=== PATIENT | male | born 1985 | race Two or more races ===

== ENCOUNTER 2016-12-08 07:07 | Day surgery (SDC) | payer BC ==
[~2016-12-08] VITALS: Ht 165.1 cm; Wt 82.0 kg
[2016-12-08] VITALS (8 sets, daily range): BP systolic 92–121; BP diastolic 50–64
[2016-12-08] MEDS ORDERED: NORCO 5/3251 TABLET PO (11:35)
== END 2016-12-08 18:32 | disposition home or self-care (01) ==
LOC: SDC 07:07
PROC: 0WUF4JZ Supplement Abdominal Wall with Synthetic Substitute, Percutaneous Endoscopic Approach (ICD-10-PCS; principal; 2016-12-08)
DX: K43.9 Ventral hernia without obstruction or gangrene (principal); K21.9 Gastro-esophageal reflux disease without esophagitis; Z87.891 Personal history of nicotine dependence; Z82.49 Family history of ischemic heart disease and other diseases of the circulatory system; Z83.3 Family history of diabetes mellitus
CPT/HCPCS: C1781; J0131; J0690; J1170; J1885; J2250; J2710; J2765; J3010; J7030; J7120

== ENCOUNTER 2017-01-15 19:36 | Inpatient (IN) | payer BC ==
[~2017-01-15] VITALS: Ht 165.1 cm; Wt 88.2 kg
[~2017-01-15 19:36] MED LIST: NORCO 5/3251 TABLET PO; [UNRECOGNIZED DRUG - OTHER]
[2017-01-15 20:21] LABS: HEMATOCRIT 41.9 % (38.0-50.0); MCH 23.5 PG (29.0-34.0); MCHC 31.7 G/DL (30.0-36.0); MCV 74.2 FL (86-99); MEAN PLAT.VOLUME 8.7 uM^3 (9.0-12.4); PLATELET COUNT 271 K/uL (156-360); RBC DIS.WIDTH-CV 13.8 % (11.8-14.6); RBC DIS.WIDTH-SD 36.9 % (39-53); RED BLOOD COUNT 5.65 M/uL (4.00-5.50)
[2017-01-15 20:30] LABS: CHLORIDE 101 mEq/L (99-109); POTASSIUM 4.2 mEq/L (3.7-5.4); SODIUM 137 mEq/L (136-147)
[2017-01-15 20:32] LABS: GLUCOSE 114 mg/dL (70-99)
[2017-01-15 20:33] LABS: ANION GAP 10 MEQ/L (2-14)
[2017-01-15 20:34] LABS: TOTAL BILIRUBIN 3.9 mg/dL (0.0-1.0)
[2017-01-15 20:36] LABS: ALKALINE PHOSPHATASE 352 IU/L (3-129); GFR ESTIMATE (CALCULATED) > 59 mL/min/
[2017-01-15 20:37] LABS: UREA NITROGEN (BUN) 10 mg/dL (9-23)
[2017-01-15 21:29] LABS: LIPASE 835 U/L (1.0-51.0)
[2017-01-15 21:32] LABS: CREATINE KINASE 56 IU/L (1-294); TOTAL CK 56 IU/L (1-294)
[2017-01-15 21:38] LABS: CK-MB 0.6 ng/mL (0.0-4.9)
[2017-01-15 22:03] LABS: INTERNAL CONTROL VALID? YES; MONOSPOT (MONONUCLEOSIS SEROL) NEGATIVE
[2017-01-15 22:06] LABS: HEMATOCRIT 43.3 % (38.0-50.0); MCH 23.2 PG (29.0-34.0); MCHC 31.4 G/DL (30.0-36.0); MCV 73.9 FL (86-99); NRBC (%) 0.2 /100 WBC (0-0); PLATELET COUNT 294 K/uL (156-360); RBC DIS.WIDTH-CV 13.9 % (11.8-14.6); RBC DIS.WIDTH-SD 36.9 % (39-53); RED BLOOD COUNT 5.86 M/uL (4.00-5.50); WHITE BLOOD COUNT 12.1 K/uL (4.1-10.2)
[2017-01-15 23:19] LABS: INFLUENZA A VIRAL ANTIGEN NEGATIVE; INFLUENZA B VIRAL ANTIGEN NEGATIVE
[2017-01-15 23:20] LABS: ADD MIUA? YES; BILIRUBIN NEGATIVE; BLOOD SMALL; COLOR YELLOW ((YELLOW)); GLUCOSE (STRIP) NEGATIVE; KETONES 20; LEUKOCYTES NEGATIVE; NITRITE NEGATIVE; PROTEIN (STRIP) NEGATIVE; SPECIFIC GRAVITY 1.006 (1.000-1.030); UROBILINOGEN 0.2 MG/DL (0.2-1.0)
[2017-01-15 23:32] LABS: ABS NEUTROPHIL COUNT 9.6; ANISOCYTOSIS 1+; EOSINOPHIL ABS CT 0.2; EOSINOPHILS 1.7 % (0-5.0); INSTRUMENT ABS NEUTROPHIL CT 9.1 K/uL; LYMPHOCYTES 4.3 % (15.0-45.0); PLAT.SUFFICIENCY ADEQUATE; SEG.NEUTROPHILS 79.2 % (46.0-76.0)
[2017-01-15] MEDS ORDERED: ADVIL200 MG PO (23:41)
[2017-01-15] MEDS ORDERED: ZANTAC75 M1 PO (23:45)
[2017-01-15] MEDS ORDERED: ZYRTEC10 M3 PO (23:46)
[2017-01-16 00:04] LABS: BACTERIA 1+ /HPF; CASTS NONE SEEN /LPF; CRYSTALS NONE SEEN; EPITHELIAL CELLS RARE /HPF; MUCUS NONE SEEN /LPF; RED BLOOD CELLS NONE SEEN /HPF (0-5); UCUL ADDED? NO; WHITE BLOOD CELLS NONE SEEN /HPF (0-5)
[2017-01-16 05:48] VITALS: BP 122/59
[2017-01-16 08:55] VITALS: BP 125/57
[2017-01-16 08:59] LABS: HEMATOCRIT 41.1 % (38.0-50.0); MCH 24.2 PG (29.0-34.0); MCHC 32.1 G/DL (30.0-36.0); MCV 75.4 FL (86-99); MEAN PLAT.VOLUME 8.9 uM^3 (9.0-12.4); PLATELET COUNT 237 K/uL (156-360); RBC DIS.WIDTH-CV 14.3 % (11.8-14.6); RED BLOOD COUNT 5.45 M/uL (4.00-5.50); WHITE BLOOD COUNT 10.9 K/uL (4.1-10.2)
[2017-01-16 09:23] LABS: ALKALINE PHOSPHATASE 279 IU/L (3-129); ANION GAP 8 MEQ/L (2-14); C-REACTIVE PROTEIN 69.3 MG/L (0-10); CHLORIDE 108 MEQ/L (99-109); GAMMA-GT 499 IU/L (4-73); GFR ESTIMATE (CALCULATED) > 59 mL/min/; GLUCOSE 95 mg/dL (70-99); IRON 44 MCG/DL (35-150); POTASSIUM 4.7 MEQ/L (3.7-5.4); SAMPLE HEMOLYSIS CHECK 1; SAMPLE ICTERIC CHECK 1; SAMPLE LIPEMIA CHECK 0; SODIUM 143 MEQ/L (136-147); TOTAL BILIRUBIN 5.1 MG/DL (0.0-1.0); TRIGLYCERIDES 190 MG/DL (Normal: <150); UREA NITROGEN (BUN) 10 mg/dL (9-23)
[2017-01-16 09:48] LABS: LIPASE 556 U/L (1.0-51.0)
[2017-01-16 10:40] LABS: FERRITIN 228 NG/ML (22-322)
[2017-01-16 12:07] LABS: LYME DISEASE SEROLOGY SCREEN NEGATIVE (NEGATIVE)
[2017-01-16 12:25] VITALS: BP 111/70
[2017-01-16 16:17] VITALS: BP 96/54
[2017-01-16 17:22] VITALS: BP 145/65
[2017-01-16 19:00] VITALS: BP 132/72
[2017-01-17] VITALS (10 sets, daily range): BP systolic 119–168; BP diastolic 58–90
[2017-01-17 05:57] LABS: ALKALINE PHOSPHATASE 288 IU/L (3-129); ANION GAP 10 MEQ/L (2-14); CHLORIDE 104 MEQ/L (99-109); GFR ESTIMATE (CALCULATED) > 59 mL/min/; GLUCOSE 102 mg/dL (70-99); LIPASE 429 U/L (1.0-51.0); POTASSIUM 3.9 MEQ/L (3.7-5.4); SAMPLE HEMOLYSIS CHECK 0; SAMPLE ICTERIC CHECK 1; SAMPLE LIPEMIA CHECK 0; SODIUM 138 MEQ/L (136-147); TOTAL BILIRUBIN 4.9 MG/DL (0.0-1.0); UREA NITROGEN (BUN) 8 mg/dL (9-23)
[2017-01-17 06:14] LABS: EOSINOPHIL (%) 1.7 % (0-5); EOSINOPHIL COUNT 0.2 K/uL (0-0.3); HEMATOCRIT 35.7 % (38.0-50.0); IMMATURE GRANULOCYTE (%) 0.4 % (0.0-0.7); INSTRUMENT ABS NEUTROPHIL CT 7.5 K/uL; LYMPHOCYTE COUNT 1.6 K/uL (1.0-2.8); MCH 23.2 PG (29.0-34.0); MCHC 31.4 G/DL (30.0-36.0); MCV 74.1 FL (86-99); MONOCYTE (%) 9.4 % (3-12); NEUTROPHIL (%) 72.9 % (45-76); NEUTROPHIL COUNT 7.5 K/uL (1.8-6.4); PLATELET COUNT 237 K/uL (156-360); RBC DIS.WIDTH-CV 13.9 % (11.8-14.6); RBC DIS.WIDTH-SD 37.2 % (39-53); RED BLOOD COUNT 4.82 M/uL (4.00-5.50); WHITE BLOOD COUNT 10.3 K/uL (4.1-10.2)
[2017-01-18 04:30] VITALS: BP 141/68
[2017-01-18 06:29] LABS: EOSINOPHIL (%) 1.8 % (0-5); EOSINOPHIL COUNT 0.2 K/uL (0-0.3); HEMATOCRIT 32.8 % (38.0-50.0); IMMATURE GRANULOCYTE (%) 0.7 % (0.0-0.7); IMMATURE GRANULOCYTE COUNT 0.1 K/uL; INSTRUMENT ABS NEUTROPHIL CT 7.9 K/uL; LYMPHOCYTE COUNT 1.4 K/uL (1.0-2.8); MCH 24.3 PG (29.0-34.0); MCHC 32.9 G/DL (30.0-36.0); MCV 73.7 FL (86-99); MEAN PLAT.VOLUME 9.1 uM^3 (9.0-12.4); MONOCYTE (%) 8.8 % (3-12); MONOCYTE COUNT 0.9 K/uL (0-0.8); NEUTROPHIL (%) 74.8 % (45-76); NEUTROPHIL COUNT 7.9 K/uL (1.8-6.4); PLATELET COUNT 259 K/uL (156-360); RBC DIS.WIDTH-CV 14.3 % (11.8-14.6); RED BLOOD COUNT 4.45 M/uL (4.00-5.50); WHITE BLOOD COUNT 10.6 K/uL (4.1-10.2)
[2017-01-18 06:59] LABS: ALKALINE PHOSPHATASE 272 IU/L (3-129); ANION GAP 11 MEQ/L (2-14); CHLORIDE 107 MEQ/L (99-109); GFR ESTIMATE (CALCULATED) > 59 mL/min/; GLUCOSE 97 mg/dL (70-99); LIPASE 439 U/L (1.0-51.0); POTASSIUM 3.5 MEQ/L (3.7-5.4); SAMPLE HEMOLYSIS CHECK 0; SAMPLE ICTERIC CHECK 1; SAMPLE LIPEMIA CHECK 0; SODIUM 139 MEQ/L (136-147); TOTAL BILIRUBIN 5.5 MG/DL (0.0-1.0); UREA NITROGEN (BUN) 8 mg/dL (9-23)
[2017-01-18 07:20] VITALS: BP 138/79
[2017-01-18 10:52] LABS: HBSG INDEX 0.15; HPCA INDEX 0.06
[2017-01-18 10:53] LABS: ANTI-HEPATITIS A VIRUS (IGM) Nonreactive; HAV INDEX 0.15
[2017-01-18 10:54] LABS: ANTI-HEPATITIS B CORE (IGM) Nonreactive; HBC IgM INDEX 0.06
[2017-01-18 11:20] VITALS: BP 141/87
[2017-01-18 15:25] VITALS: BP 148/76
[2017-01-18 20:15] VITALS: BP 167/91
[2017-01-18 22:31] LABS: CARBON DIOXIDE (BICARBONATE) 24.9 MEQ/L (20-31)
[2017-01-18 22:33] LABS: EOSINOPHIL (%) 1.8 % (0-5); EOSINOPHIL COUNT 0.2 K/uL (0-0.3); HEMATOCRIT 33.5 % (38.0-50.0); IMMATURE GRANULOCYTE COUNT 0.1 K/uL; INSTRUMENT ABS NEUTROPHIL CT 8.3 K/uL; LYMPHOCYTE COUNT 1.5 K/uL (1.0-2.8); MCH 23.3 PG (29.0-34.0); MCHC 31.9 G/DL (30.0-36.0); MEAN PLAT.VOLUME 8.7 uM^3 (9.0-12.4); MONOCYTE (%) 8.9 % (3-12); NEUTROPHIL (%) 74.7 % (45-76); NEUTROPHIL COUNT 8.3 K/uL (1.8-6.4); PLATELET COUNT 268 K/uL (156-360); RBC DIS.WIDTH-CV 14.3 % (11.8-14.6); RBC DIS.WIDTH-SD 37.5 % (39-53); RED BLOOD COUNT 4.59 M/uL (4.00-5.50)
[2017-01-18 22:39] LABS: ANION GAP 8 MEQ/L (2-14); CHLORIDE 106 MEQ/L (99-109); POTASSIUM 3.7 MEQ/L (3.7-5.4); SAMPLE HEMOLYSIS CHECK 0; SAMPLE ICTERIC CHECK 1; SAMPLE LIPEMIA CHECK 0; SODIUM 137 MEQ/L (136-147); TOTAL BILIRUBIN 5.1 MG/DL (0.0-1.0)
[2017-01-18 22:42] VITALS: BP 161/81
[2017-01-18 22:45] LABS: ALKALINE PHOSPHATASE 265 IU/L (3-129); GFR ESTIMATE (CALCULATED) > 59 mL/min/; GLUCOSE 114 mg/dL (70-99); UREA NITROGEN (BUN) 8 mg/dL (9-23)
[2017-01-19 07:02] LABS: EOSINOPHIL (%) 2.2 % (0-5); EOSINOPHIL COUNT 0.2 K/uL (0-0.3); HEMATOCRIT 33.2 % (38.0-50.0); IMMATURE GRANULOCYTE (%) 1.1 % (0.0-0.7); IMMATURE GRANULOCYTE COUNT 0.1 K/uL; LYMPHOCYTE COUNT 1.4 K/uL (1.0-2.8); MCHC 31.6 G/DL (30.0-36.0); MCV 72.8 FL (86-99); MEAN PLAT.VOLUME 9.2 uM^3 (9.0-12.4); MONOCYTE (%) 7.8 % (3-12); MONOCYTE COUNT 0.8 K/uL (0-0.8); NEUTROPHIL (%) 75.8 % (45-76); PLATELET COUNT 285 K/uL (156-360); RBC DIS.WIDTH-CV 14.2 % (11.8-14.6); RBC DIS.WIDTH-SD 37.6 % (39-53); RED BLOOD COUNT 4.56 M/uL (4.00-5.50); WHITE BLOOD COUNT 10.6 K/uL (4.1-10.2)
[2017-01-19 07:19] LABS: ALKALINE PHOSPHATASE 254 IU/L (3-129); ANION GAP 9 MEQ/L (2-14); CHLORIDE 105 MEQ/L (99-109); GFR ESTIMATE (CALCULATED) > 59 mL/min/; GLUCOSE 96 mg/dL (70-99); POTASSIUM 3.9 MEQ/L (3.7-5.4); SAMPLE HEMOLYSIS CHECK 0; SAMPLE ICTERIC CHECK 1; SAMPLE LIPEMIA CHECK 0; SODIUM 138 MEQ/L (136-147); TOTAL BILIRUBIN 4.6 MG/DL (0.0-1.0); UREA NITROGEN (BUN) 7 mg/dL (9-23)
[2017-01-19 08:16] VITALS: BP 158/78
[2017-01-19 15:57] VITALS: BP 139/83
[2017-01-19 19:05] VITALS: BP 142/91
[2017-01-19 22:49] VITALS: BP 134/75
[2017-01-20 07:05] LABS: HEMATOCRIT 31.6 % (38.0-50.0); MCH 23.8 PG (29.0-34.0); MCHC 32.3 G/DL (30.0-36.0); MCV 73.8 FL (86-99); PLATELET COUNT 338 K/uL (156-360); RBC DIS.WIDTH-CV 14.6 % (11.8-14.6); RBC DIS.WIDTH-SD 38.5 % (39-53); RED BLOOD COUNT 4.28 M/uL (4.00-5.50); WHITE BLOOD COUNT 12.2 K/uL (4.1-10.2)
[2017-01-20 07:20] VITALS: BP 146/90
[2017-01-20 07:49] LABS: ALKALINE PHOSPHATASE 258 IU/L (3-129); DIRECT BILIRUBIN 2.6 mg/dL (0.0-0.3); LIPASE 178 U/L (1.0-51.0)
[2017-01-20 15:40] VITALS: BP 160/85
[2017-01-21 00:37] VITALS: BP 144/81
[2017-01-21 07:48] VITALS: BP 144/71
[2017-01-21 09:50] LABS: BASOPHIL COUNT 0.1 K/uL (0-0.1); EOSINOPHIL (%) 2.9 % (0-5); EOSINOPHIL COUNT 0.4 K/uL (0-0.3); HEMATOCRIT 33.4 % (38.0-50.0); IMMATURE GRANULOCYTE (%) 2.1 % (0.0-0.7); IMMATURE GRANULOCYTE COUNT 0.3 K/uL; LYMPHOCYTE COUNT 2.2 K/uL (1.0-2.8); MCH 24.2 PG (29.0-34.0); MCHC 32.6 G/DL (30.0-36.0); MCV 74.1 FL (86-99); MEAN PLAT.VOLUME 9.1 uM^3 (9.0-12.4); MONOCYTE (%) 6.7 % (3-12); MONOCYTE COUNT 0.9 K/uL (0-0.8); NEUTROPHIL (%) 71.9 % (45-76); PLATELET COUNT 413 K/uL (156-360); RBC DIS.WIDTH-CV 14.7 % (11.8-14.6); RBC DIS.WIDTH-SD 39.2 % (39-53); RED BLOOD COUNT 4.51 M/uL (4.00-5.50)
[2017-01-21 10:09] LABS: ALKALINE PHOSPHATASE 260 IU/L (3-129); ANION GAP 10 MEQ/L (2-14); CHLORIDE 103 MEQ/L (99-109); GFR ESTIMATE (CALCULATED) > 59 mL/min/; GLUCOSE 87 mg/dL (70-99); POTASSIUM 3.8 MEQ/L (3.7-5.4); SAMPLE HEMOLYSIS CHECK 0; SAMPLE ICTERIC CHECK 1; SAMPLE LIPEMIA CHECK 0; SODIUM 138 MEQ/L (136-147); TOTAL BILIRUBIN 3.3 MG/DL (0.0-1.0); UREA NITROGEN (BUN) 7 mg/dL (9-23)
[2017-01-21 11:21] LABS: ANTI-EPSTEIN-BARR NUCLEAR AG POSITIVE; ANTI-EPSTEIN-BARR VCA IGG POSITIVE; ANTI-EPSTEIN-BARR VCA IGM NEGATIVE
[2017-01-21 11:39] LABS: Rickettsia (RMSF) IgG Not Detected (Not Detected); Rickettsia (RMSF) IgM Not Detected (Not Detected)
[2017-01-21 15:25] VITALS: BP 158/92
[2017-01-22 07:42] VITALS: BP 146/70
[2017-01-22 08:04] LABS: HEMATOCRIT 34.7 % (38.0-50.0); MCH 22.9 PG (29.0-34.0); MCHC 31.4 G/DL (30.0-36.0); MCV 72.7 FL (86-99); MEAN PLAT.VOLUME 9.1 uM^3 (9.0-12.4); PLATELET COUNT 447 K/uL (156-360); RBC DIS.WIDTH-CV 14.6 % (11.8-14.6); RBC DIS.WIDTH-SD 37.7 % (39-53); RED BLOOD COUNT 4.77 M/uL (4.00-5.50); WHITE BLOOD COUNT 12.9 K/uL (4.1-10.2)
[2017-01-22 08:29] LABS: ALKALINE PHOSPHATASE 259 IU/L (3-129); ANION GAP 9 MEQ/L (2-14); CHLORIDE 98 MEQ/L (99-109); GFR ESTIMATE (CALCULATED) > 59 mL/min/; GLUCOSE 101 mg/dL (70-99); POTASSIUM 3.8 MEQ/L (3.7-5.4); SAMPLE HEMOLYSIS CHECK 0; SAMPLE ICTERIC CHECK 0; SAMPLE LIPEMIA CHECK 0; SODIUM 139 MEQ/L (136-147); TOTAL BILIRUBIN 2.8 MG/DL (0.0-1.0); UREA NITROGEN (BUN) 9 mg/dL (9-23)
[2017-01-22 17:16] VITALS: BP 132/73
[2017-01-23 00:50] VITALS: BP 158/93
[2017-01-23 06:25] LABS: HEMATOCRIT 34.2 % (38.0-50.0); MCH 23.3 PG (29.0-34.0); MCHC 31.9 G/DL (30.0-36.0); MCV 73.2 FL (86-99); MEAN PLAT.VOLUME 9.1 uM^3 (9.0-12.4); PLATELET COUNT 444 K/uL (156-360); RBC DIS.WIDTH-CV 14.6 % (11.8-14.6); RBC DIS.WIDTH-SD 37.9 % (39-53); RED BLOOD COUNT 4.67 M/uL (4.00-5.50); WHITE BLOOD COUNT 12.3 K/uL (4.1-10.2)
[2017-01-23 06:59] LABS: ALKALINE PHOSPHATASE 259 IU/L (3-129); ANION GAP 9 MEQ/L (2-14); CHLORIDE 102 MEQ/L (99-109); GFR ESTIMATE (CALCULATED) > 59 mL/min/; GLUCOSE 104 mg/dL (70-99); POTASSIUM 4.4 MEQ/L (3.7-5.4); SAMPLE HEMOLYSIS CHECK 0; SAMPLE ICTERIC CHECK 0; SAMPLE LIPEMIA CHECK 0; SODIUM 142 MEQ/L (136-147); UREA NITROGEN (BUN) 7 mg/dL (9-23)
[2017-01-23 07:06] LABS: TOTAL BILIRUBIN 2.2 MG/DL (0.0-1.0)
[2017-01-23] MEDS ORDERED: TRAMADOL HCL50 MG PO (09:35)
[2017-01-23] MEDS ORDERED: LEVAQUIN750 MG PO (09:35)
[2017-01-23] MEDS ORDERED: DOXYCYCLINE HY100 M3 PO (09:35)
[2017-01-23] MEDS ORDERED: BISACODYL5 MG PO (09:35)
[2017-01-23] MEDS ORDERED: GUAIFENESI100 MG/5 M PO (09:37)
[2017-01-23 17:32] LABS: Cytomegalovirus IgG Antibody+ >10.00 U/mL (<0.60)
[2017-01-23 19:45] LABS: QGTB-NIL 0.04 IU/mL (()); TB AG-NIL 0.01 IU/mL (())
== END 2017-01-23 12:32 | disposition home or self-care (01) | DRG 853 ==
LOC: EME 19:36 → EDOF 01-16 04:42 → ENRESERV 01-16 04:42 → 5WEST 01-16 05:42 → 5EAST 01-17 10:43 → ENRESERV 01-17 10:57 → 5EAST 01-17 17:52
PROVIDERS: Emergency Medicine; Hospitalist; Internal Medicine; Nurse Practitioner Adult Health; Physician Assistant Medical; Specialist
DX: A41.9 Sepsis, unspecified organism (principal); J18.9 Pneumonia, unspecified organism; K85.90 Acute pancreatitis without necrosis or infection, unspecified; J90 Pleural effusion, not elsewhere classified; J98.11 Atelectasis; Z68.32 Body mass index [BMI] 32.0-32.9, adult; K86.89 Other specified diseases of pancreas; K43.9 Ventral hernia without obstruction or gangrene; K76.0 Fatty (change of) liver, not elsewhere classified; K75.9 Inflammatory liver disease, unspecified; K21.9 Gastro-esophageal reflux disease without esophagitis
CPT/HCPCS: 71010; 71250; 74176; 74183; 80053; 80074; 80076; 81003; 82164 90; 82550; 82553; 82728; 82787 90; 82803; 82977; 83540; 83605; 83690; 84466; 84478; 85007; 85025; 85025 91; 85027; 85060; 86140; 86308; 86480 90; 86618; 86644 90; 86645 90; 86664; 86665; 86708 90; 86757 90; 87040; 87086; 87207; 87502; 88173; 88305; 88312; 88342 TC; 94640; 94799; 99281; 99285; C1726; G0378; J0295; J0456; J0696; J1644; J1885; J2270; J2405; J3010; J7030; J7050; S0028